=== PATIENT | male | born 1955 | race Caucasian/White ===

== ENCOUNTER → 2019-03-01 13:36 | Outpatient (CLI) | payer BC, SELFPAY ==
--- NOTE | 2019-03-01 13:43 | XR_ITS ---
PROCEDURE: XR FOOT WT BEARING LT 3V CLINICAL INDICATION: pain Left heel pain COMPARISON: No exams were available for comparison FINDINGS: No fracture or dislocation. No lytic or blastic change. There is normal mineralization. There are mild osteoarthritic changes of the talonavicular joint Other findings:The joint space is not identified at the anterior subtalar region suggesting talocalcaneal coalition. Consider CT or MRI for confirmation. 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 Consider CT or MRI for further evaluation Osteoarthritic change of the midfoot Dictated by: Jovany Álvarez MD 03/01/2019 16:19 Electronically signed by Jovany Álvarez MD in [place] 03/01/2019 16:19
== END ==
PROVIDERS: PCP Family Medicine; Visit Provider Podiatrist
DX: M79.672 Pain in left foot (principal); M79.671 Pain in right foot
CPT/HCPCS: 73630

== ENCOUNTER 2023-11-19 02:04 | Emergency (ER) | payer MEDICARE, SELFPAY ==
--- NOTE | 2023-11-19 | CA_ITS ---
FINAL REPORT CLINICAL HISTORY: rt leg pain x 4-5 days without injury. Previous DVT of arm 17 years ago FINDINGS: Color Doppler, duplex Doppler and compression sonography of the right lower extremity venous system was performed. Thrombus is noted in the right proximal peroneal vein and right posterior tibial vein. The other veins are patent and compressible. IMPRESSION: Deep venous thrombosis involving the right peroneal and posterior tibial veins. Authenticated and ERN
[2023-11-19 02:05] VITALS: BP 149/94; PULSE 82; RESP 20; TEMP 36.8; O2SAT 95; BMI 29.7
--- NOTE | 2023-11-19 02:20 | ED_ITS ---
Discharge Plan Disposition Patient Disposition: Home, Self-Care Prescriptions Prescriptions: No Action gabapentin 300 mg capsule 300 mg PO TID Qty: 270 Patient Comments: TAKE 1 CAPSULE BY MOUTH 3 TIMES A DAY pravastatin 10 mg tablet 10 mg PO DAILY Qty: 90 Patient Comments: TAKE 1 TABLET BY MOUTH EVERY DAY duloxetine 30 mg capsule,delayed release(DR/EC) PO Qty: 90 Patient Comments: TAKE ONE CAPSULE BY MOUTH EVERY DAY TO IMPROVE MOOD famotidine 20 mg tablet 20 mg PO BID Qty: 180 Patient Comments: TAKE 1 TABLET BY MOUTH TWICE A DAY metoprolol succinate 100 mg tablet extended release 24 hr PO Qty: 90 Patient Comments: TAKE 1 TABLET BY MOUTH EVERY MORNING folic acid 1 mg tablet 1 mg PO DAILY Qty: 90 Patient Comments: TAKE 1 TABLET BY MOUTH EVERY MORNING buspirone 10 mg tablet 10 mg PO TID Qty: 405 Patient Comments: TAKE 1 AND 1/2 TABLET BY MOUTH THREE TIMES A DAY fenofibrate 160 mg tablet 160 mg PO DAILY Qty: 90 Patient Comments: TAKE 1 TABLET BY MOUTH AT BEDTIME krill oil 500 mg capsule PO cyanocobalamin (vitamin B-12) 1,000 mcg capsule 1,000 mcg PO DAILY cholecalciferol (vitamin D3) 2,000 unit capsule 2,000 unit PO DAILY aspirin [Adult Low Dose Aspirin] 81 mg tablet,delayed release (DR/EC) 81 mg PO DAILY Referrals Follow up/Referrals: Nate Alas [Primary Care Provider] - See instructions Activity Restrictions/Add. Instructions Additional Instructions/Restrictions: Please follow-up for formal ultrasound of the right leg. Please follow-up with your primary care provider. Please return to the emergency department if you develop any new or worsening symptoms or become concerned for your health. Clinical Impressions Clinical Impression: Lower extremity pain, right Discharge ED Provider: Shaan Ortega General Adult HPI General Chief complaint: PAIN Stated complaint: possible blood clot, pain R leg Time Seen by Provider: 11/19/23 02:08 History of Present Illness HPI narrative: 68-year-old male with history of hypertension hyperlipidemia, prior unprovoked blood clot in the right arm approximately 15 years ago, presents with concern for blood clot in the right leg. He reports that he has been having pain in the posterior thigh, popliteal fossa and calf for the last few days. It has been worsening. Reports it is achy, dull. Denies any numbness or tingling or weakness. Denies any redness or swelling. Reports feels like when he had a blood clot in his arm. He denies any recent surgery immobilization travel etc. Denies any recent injury. Patient also reports that he does have intermittent pains of chest pain, none currently. Reports that he has been a little more short of breath than normal, this been going on for approximately 2 weeks. Reports that he is being worked up by his PCP for these issues. Denies any active chest pain or recent chest pain. Related Data Home Medications Medication Instructions Recorded Confirmed aspirin 81 mg tablet,delayed 81 mg PO DAILY 03/01/19 03/01/19 release (Adult Low Dose Aspirin) buspirone 10 mg tablet 10 mg PO TID #405 tabs 03/01/19 03/01/19 cholecalciferol (vitamin D3) 50 2,000 unit PO DAILY 03/01/19 03/01/19 mcg (2,000 unit) capsule cyanocobalamin (vitamin B-12) 1,000 mcg PO DAILY 03/01/19 03/01/19 1,000 mcg capsule duloxetine 30 mg capsule,delayed PO #90 caps 03/01/19 03/01/19 release famotidine 20 mg tablet 20 mg PO BID #180 tabs 03/01/19 03/01/19 fenofibrate 160 mg tablet 160 mg PO DAILY #90 tabs 03/01/19 03/01/19 folic acid 1 mg tablet 1 mg PO DAILY #90 tabs 03/01/19 03/01/19 gabapentin 300 mg capsule 300 mg PO TID #270 caps 03/01/19 03/01/19 krill oil 500 mg capsule mg PO 03/01/19 03/01/19 metoprolol succinate 100 mg PO #90 tabs 03/01/19 03/01/19 tablet,extended release 24 hr pravastatin 10 mg tablet 10 mg PO DAILY #90 tabs 03/01/19 03/01/19 Allergies Allergy/AdvReac Type Severity Reaction Status Date / Time ranitidine AdvReac Unknown Verified 03/01/19 14:11 [facility] Disclaimer: The information contained in this section may have been updated after the patient was seen, as this information can be updated by other users. Social History Smoking Status: Never smoker alcohol intake: former current occupational status: retired Travel in the last 8 weeks: None ROS Obtained: Yes All systems reviewed & no additional complaints except as documented Physical Exam General General appearance: alert and in no apparent distress Head Head exam: atraumatic and normocephalic Eye Eye exam: Present normal appearance, PERRL and EOMI ENT ENT exam: Present normal oropharynx and normal external ear exam Neck Neck exam: Present normal inspection and full ROM Chest Chest inspection: Present normal inspection and symmetric chest wall rise; Absent tenderness Respiratory Respiratory exam: Present normal lung sounds bilaterally; Absent respiratory distress Cardiovascular Cardiovascular exam: Present regular rate and normal rhythm Abdominal Exam Abdominal exam: Present soft; Absent distention, tenderness or guarding Extremities Exam Extremities exam: Present normal inspection and tenderness (Right posterior thigh, popliteal fossa, calf, mild. No unilateral swelling or erythema. Normal vascular exam); Absent edema or joint swelling Back Exam Back exam: Present normal inspection; Absent tenderness Neurological Exam Neurological exam: Present alert and oriented X3; Absent motor sensory deficit Psychiatric Psychiatric exam: Present normal affect and normal mood Skin Skin exam: Present warm, dry and normal color Lymphatic Lymphatic Findings: no adenopathy Medical Decision Making Medical Records Medical records reviewed: Yes I reviewed the patient's medical records. Massimo Inquiry Pt receiving controlled substance: No Massimo was queried for this patient: No Vital Signs: 11/19/23 02:05 11/19/23 02:31 11/19/23 03:00 Temperature 98.3 F Temperature Source Oral Pulse Rate 85 71 Pulse Rate [Right Radial] 82 Respiratory Rate 20 18 18 Blood Pressure 142/88 H 132/90 Blood Pressure [Right Arm] 149/94 H Blood Pressure Mean [Right Arm] 112 Blood Pressure Source [Right Arm] Automatic Cuff Blood Pressure Position [Right Arm] Sitting 02 Sat by Pulse Oximetry 95 97 94 L Oxygen Delivery Method Room Air Room Air Room Air 11/19/23 03:30 11/19/23 04:24 Temperature 97.9 F Temperature Source Oral Pulse Rate 70 79 Pulse Rate [Right Radial] Respiratory Rate 18 16 Blood Pressure 138/84 122/88 Blood Pressure [Right Arm] Blood Pressure Mean [Right Arm] Blood Pressure Source [Right Arm] Blood Pressure Position [Right Arm] 02 Sat by Pulse Oximetry 95 Oxygen Delivery Method Room Air Room Air Lab Data Lab results reviewed: Yes I reviewed the patient's lab results. Lab Results 11/19/23 02:25: WBC 8.9, RBC 4.58 L, Hgb 14.3, Hct 41.4 L, MCV 90.4, MCH 31.3 H, MCHC 34.6, RDW 13.6, Plt Count 179, MPV 7.4, Neut % (Auto) 52.0, Lymph % (Auto) 35.4, [place] % (Auto) 8.7, Eos % (Auto) 3.0, Baso % (Auto) 1.0, Neut # (Auto) 4.6, Lymph # (Auto) 3.1, [place] # (Auto) 0.8, Eos # (Auto) 0.3, Baso # (Auto) 0.1, D- Dimer 1.42 H, Sodium 140, Potassium 4.1, Chloride 108 H, Carbon Dioxide 25, Anion Gap 11.1, BUN 20, Creatinine 1.50 H, Estimated Creat Clear 61, Estimated GFR 47 L, Est GFR ( Amer) 56 L, Glucose 112 H, Calcium 10.4 H, Total Bilirubin 0.5, AST 38, ALT 38, Alkaline Phosphatase 65, Total Protein 7.5, Albumin 4.3, Globulin 3.2, Albumin/Globulin Ratio 1.3 11/19/23 02:25 11/19/23 02:25 Orders (Tests/Meds): ED MEDICATIONS Generic Name Dose Route Start Last Admin Trade Name Freq PRN Reason Stop Dose Admin Sodium Chloride 10 ml 11/19/23 03:30 11/19/23 03:31 Sodium Chloride 0.9% 10ml Syr (Rad Only) IV 12/19/23 03:29 10 ml NEEDED PRN Administration Maintain IV Site Discontinued Medications Generic Name Dose Route Start Last Admin Trade Name Freq PRN Reason Stop Dose Admin Iopamidol 70 ml 11/19/23 03:30 11/19/23 03:30 Iopamidol-370 (76%);100ml Bottle IV 11/19/23 03:31 70 ml ONCE ONE Administration Sodium Chloride 50 ml 11/19/23 03:30 11/19/23 03:30 0.9 % Sodium Chloride 50 Ml Vial IV 11/19/23 03:31 50 ml ONCE ONE Administration ORDERS Category Date Time Status CT angio chest PE protocol Stat Cat Scan 11/19/23 02:56 Completed POCUS Point of Care (ER Only) Stat Exams 11/19/23 02:21 Ordered CBC w/Auto Diff [Complete Blood Count Auto Diff] Stat Lab 11/19/23 02:25 Completed CMP [Comprehensive Metabolic Panel] Stat Lab 11/19/23 02:25 Completed D-Dimer Stat Lab 11/19/23 02:25 Completed Medical Decision Narrative: 68-year-old male with history of hypertension hyperlipidemia, previous unprovoked DVT in the arm presents for posterior right leg pain concerning for DVT. Also reports vague intermittent shortness of breath over the last couple of weeks.. History was obtained via interactive discussion with patient, chart review. On arrival, patient is [afebrile, hemodynamically stable, satting appropriately, alert, oriented x4, GCS 15], moving all extremities spontaneously. Full physical exam performed and significant for no unilateral swelling or erythema. Differential includes but is not limited to DVT, muscular strain, arterial insufficiency, radiculopathy. Bedside ultrasound performed by me and shows no evidence of acute DVT in the right lower extremity. Workup initiated including CBC CMP D-dimer. On re-evaluation, patient [remains afebrile, HD stable.] Laboratory workup independently interpreted by me and significant for mildly elevated D-dimer 1.43, will evaluate CT PE.. Imaging independently interpreted by me and significant for CT PE without evidence of acute PE, does show some chronic emphysematous changes. See radiology read for full review of final results. Initiation of anticoagulation was considered, but deemed unnecessary due to negative CT PE, negative bedside ultrasound. Given patient history, exam and workup, patient's presentation most likely represents right lower extremity pain of uncertain etiology. No evidence of acute arterial insufficiency, DVT, infectious etiology, fracture etc. These findings were communicated to patient. He was discharged in stable condition and given an order for formal duplex ultrasound of the right lower extremity to assess for DVT. Procedures Risk/Benefits of Procedure(s) Were Explained: Yes Limited Ultrasound Indication:: Limited DVT ultrasound Indication: Limited compression ultrasonography of the right upper extremity was performed to evaluate for non-compressibility of the deep veins in the patient. The ultrasound was performed with the following indications, as noted in the H&P: Right leg pain Identified structures: Right [common femoral vein, femoral vein, popliteal vein were examined.] Findings: Lower Extremity: Right CFV: Good compressibility Right FV good compressibility Right popliteal vein: Good compressibility Impression: Normal, no DVT noted in the visualized right lower extremity Images were saved to permanent archive The study was technically adequate CPT: 82829-19-UM This study was performed by me, and I personally interpreted all images/videos. Based on my clinical judgement, these images were adequate and did not necessitate further imaging. Critical Care Critical Care Time Critical Care Time: No
[2023-11-19 02:31] VITALS: BP 142/88; PULSE 85; RESP 18; O2SAT 97
[2023-11-19 02:46] LABS: Basophils # 0.1 K/mm3 (0-0.2); Chloride 108 mmol/L (98-107); Eosinophils # 0.3 K/mm3 (0.0-0.4); Hematocrit 41.4 % (42.0-52.0); Hemoglobin 14.3 g/dL (14.1-18.0); Lymphocytes # 3.1 K/mm3 (0.7-4.5); Lymphocytes % 35.4 % (10-50); Mean Corpuscular HGB Conc 34.6 g/dL (31.8-35.4); Mean Corpuscular Hemoglobin 31.3 pg (27.0-31.2); Mean Corpuscular Volume 90.4 fl (80-94); Mean Platelet Volume 7.4 fl (7.4-10.4); Monocytes # 0.8 K/mm3 (0.1-1.0); Monocytes % 8.7 % (1.7-9.3); Neutrophils # 4.6 K/mm3 (1.8-7.8); Platelet Count 179 K/mm3 (142-424); Potassium 4.1 mmoL/L (3.5-5.1); Red Blood Count 4.58 M/mm3 (4.60-6.20); Red Cell Distribution Width 13.6 % (11.5-17.5); Sodium 140 mmol/L (136-145); White Blood Count 8.9 K/mm3 (4.8-10.8)
[2023-11-19 02:48] LABS: Blood Urea Nitrogen 20 mg/dl (9-20); Creatinine Clearance Estimated 61 mL/min (50-200); Estimated Glomerular Filt Rate 47 ml/min (>60); GFR (African American) 56 ML/MIN (>60)
[2023-11-19 02:49] LABS: Alanine Aminotransferase 38 U/L (12-78); Albumin Level 4.3 g/dl (3.5-5.0); Albumin/Globulin Ratio 1.3 (1.1-1.8); Alkaline Phosphatase 65 U/L (38-126); Anion Gap 11.1 mEq/L (5-15); Aspartate Amino Transferase 38 U/L (17-59); Bilirubin,Total 0.5 mg/dl (0.2-1.3); Carbon Dioxide 25 mmol/L (22.0-30.0); Globulin 3.2 g/dL (1.3-3.2); Total Protein,Serum 7.5 g/dl (6.3-8.2)
[2023-11-19 02:50] LABS: Calcium 10.4 mg/dl (8.4-10.2); Glucose 112 mg/dl (74-100)
[2023-11-19 02:53] LABS: D-Dimer 1.42 ug/mL (0.0-0.5)
--- NOTE | 2023-11-19 02:56 | CT_ITS ---
PROCEDURE INFORMATION: Exam: CTA Chest With Contrast Exam date and time: 11/19/2023 3:25 AM Age: 68 years old Clinical indication: Shortness of breath; Additional info: Leg pain, SOA, positive dimer TECHNIQUE: Imaging protocol: Computed tomographic angiography of the chest with contrast. Exam focused on the arteries. 3D rendering (Not supervised by radiologist): MIP and/or 3D reconstructed images were created by the technologist. Radiation optimization: All CT scans at this facility use at least one of these dose optimization techniques: automated exposure control; mA and/or kV adjustment per patient size (includes targeted exams where dose is matched to clinical indication); or iterative reconstruction. Contrast material: ISOVUE; Contrast volume: 70 ml; Contrast route: INTRAVENOUS (IV); COMPARISON: No relevant prior studies available. FINDINGS: Pulmonary arteries: Normal. No pulmonary emboli. Aorta: Unremarkable. No aortic aneurysm. No aortic dissection. Lungs: Some mild upper lobe predominant centrilobular emphysema. Pleural spaces: Unremarkable. No pneumothorax. No pleural effusion. Heart: Unremarkable. No cardiomegaly. No pericardial effusion. Coronary arteries: Coronary atherosclerosis. Lymph nodes: Multiple small calcified hilar lymph nodes are seen consistent with prior granulomatous disease. Diaphragm: Elevation of the right hemidiaphragm. Bones/joints: Unremarkable. No acute fracture. Soft tissues: Unremarkable. IMPRESSION: 1. No evidence of pulmonary embolus or other acute process. 2. Multiple small calcified hilar lymph nodes are seen consistent with prior granulomatous disease. 3. Coronary atherosclerosis. 4. Elevation of the right hemidiaphragm. 5. Mild upper lobe predominant centrilobular emphysema.
[2023-11-19 03:00] VITALS: BP 132/90; PULSE 71; RESP 18; O2SAT 94
[2023-11-19 03:30] VITALS: BP 138/84; PULSE 70; RESP 18; O2SAT 95
[2023-11-19] MEDS: IOPAMIDOL-370 (76%);100ML BOTTLE 70 ML IV (03:30)
[2023-11-19] MEDS: 0.9 % SODIUM CHLORIDE 50 ML VIAL IV (03:30)
[2023-11-19] MEDS: SODIUM CHLORIDE 0.9% 10ML SYR (RAD ONLY) 10 ML IV (03:31)
[2023-11-19 04:24] VITALS: BP 122/88; PULSE 79; RESP 16; TEMP 36.6; O2SAT 95
== END 2023-11-19 04:31 | disposition home or self-care (01) ==
PROVIDERS: Emergency Provider Emergency Medicine; PCP Family Medicine
DX: I82.451 Acute embolism and thrombosis of right peroneal vein (principal); I82.441 Acute embolism and thrombosis of right tibial vein; M79.604 Pain in right leg; I10 Essential (primary) hypertension; E78.5 Hyperlipidemia, unspecified
CPT/HCPCS: 71275; 80053; 85025; 85378; 93971; 99285; Q9967

== ENCOUNTER 2023-11-19 10:48 | Emergency (ER) | payer MEDICARE, SELFPAY ==
[2023-11-19 10:50] VITALS: BP 131/78; PULSE 86; RESP 16; TEMP 36.9; O2SAT 96; BMI 28.7
--- NOTE | 2023-11-19 11:29 | HMH.EDGENADL ---
Discharge Plan Disposition Patient Disposition: Home, Self-Care Condition: Good Prescriptions Prescriptions: New Xarelto DVT-PE Treat 30d Start 15 mg (42)- 20 mg (9) tablets,dose pack See Rx Instructions .ROUTE .COMPLEX Qty: 51 0RF Rx Instructions: take one-15 mg tablet twice daily for 21 days, then one-20 mg tablet once daily; must take with meal/food No Action gabapentin 300 mg capsule 300 mg PO TID Qty: 270 Patient Comments: TAKE 1 CAPSULE BY MOUTH 3 TIMES A DAY pravastatin 10 mg tablet 10 mg PO DAILY Qty: 90 Patient Comments: TAKE 1 TABLET BY MOUTH EVERY DAY duloxetine 30 mg capsule,delayed release(DR/EC) PO Qty: 90 Patient Comments: TAKE ONE CAPSULE BY MOUTH EVERY DAY TO IMPROVE MOOD famotidine 20 mg tablet 20 mg PO BID Qty: 180 Patient Comments: TAKE 1 TABLET BY MOUTH TWICE A DAY metoprolol succinate 100 mg tablet extended release 24 hr PO Qty: 90 Patient Comments: TAKE 1 TABLET BY MOUTH EVERY MORNING folic acid 1 mg tablet 1 mg PO DAILY Qty: 90 Patient Comments: TAKE 1 TABLET BY MOUTH EVERY MORNING buspirone 10 mg tablet 10 mg PO TID Qty: 405 Patient Comments: TAKE 1 AND 1/2 TABLET BY MOUTH THREE TIMES A DAY fenofibrate 160 mg tablet 160 mg PO DAILY Qty: 90 Patient Comments: TAKE 1 TABLET BY MOUTH AT BEDTIME krill oil 500 mg capsule PO cyanocobalamin (vitamin B-12) 1,000 mcg capsule 1,000 mcg PO DAILY cholecalciferol (vitamin D3) 2,000 unit capsule 2,000 unit PO DAILY aspirin [Adult Low Dose Aspirin] 81 mg tablet,delayed release (DR/EC) 81 mg PO DAILY Referrals Follow up/Referrals: Nate Alas [Primary Care Provider] - See instructions Activity Restrictions/Add. Instructions Additional Instructions/Restrictions: As we discussed, the ultrasound shows a blood clot in your right leg, I have prescribed a by mouth medication called Xarelto which is a newer blood thinning medication that is similar in mechanism to warfarin but does not need frequent lab checks. You will need to follow-up with your primary care doctor to get this investigated further as to the cause of your blood clot. Please return to the emergency department with any new or worsening symptoms. Clinical Impressions Clinical Impression: Acute deep vein thrombosis (DVT) of right lower extremity Qualifiers: Affected thrombotic vein of extremity: peroneal Qualified Code(s): I82.451 - Acute embolism and thrombosis of right peroneal vein Discharge ED Provider: Harsha Agee Adult HPI General Chief complaint: Extremity Problem,Nontraumatic Stated complaint: follow up Time Seen by Provider: 11/19/23 11:29 History of Present Illness HPI narrative: Patient presents after being evaluated yesterday evening for right lower extremity swelling, occasional shortness of breath. He was sent for follow-up right lower extremity ultrasound after negative CT PE, however positive D-dimer. The patient reports right leg pain that has been bothering them for four to five days. They have a history of a blood clot in 2006, which was treated with warfarin. The patient denies any recent travel, procedures, hospitalizations, or prolonged immobilization. No recent surgeries. Please note that above description of symptoms, in this electronic medical record under categorization of recalled from ER triage doctor by RN are reflective of an initial nursing assessment, however, is not reflective of my full history and physical exam that was personally taken and clarified. Consequentially, this preceding description of symptoms, which may include the patient's categorized chief complaint in the EMR, do not reflect my personal clinical impression, and the ultimate description of history of present illness and patient stated complaints should be deferred to this section of the note. Unless stated otherwise or congruent with this section of the note, additional signs, symptoms, or incongruence should be interpreted as inaccurate with my clinical impression. Related Data Home Medications Medication Instructions Recorded Confirmed aspirin 81 mg tablet,delayed 81 mg PO DAILY 03/01/19 03/01/19 release (Adult Low Dose Aspirin) buspirone 10 mg tablet 10 mg PO TID #405 tabs 03/01/19 03/01/19 cholecalciferol (vitamin D3) 50 2,000 unit PO DAILY 03/01/19 03/01/19 mcg (2,000 unit) capsule cyanocobalamin (vitamin B-12) 1,000 mcg PO DAILY 03/01/19 03/01/19 1,000 mcg capsule duloxetine 30 mg capsule,delayed PO #90 caps 03/01/19 03/01/19 release famotidine 20 mg tablet 20 mg PO BID #180 tabs 03/01/19 03/01/19 fenofibrate 160 mg tablet 160 mg PO DAILY #90 tabs 03/01/19 03/01/19 folic acid 1 mg tablet 1 mg PO DAILY #90 tabs 03/01/19 03/01/19 gabapentin 300 mg capsule 300 mg PO TID #270 caps 03/01/19 03/01/19 krill oil 500 mg capsule mg PO 03/01/19 03/01/19 metoprolol succinate 100 mg PO #90 tabs 03/01/19 03/01/19 tablet,extended release 24 hr pravastatin 10 mg tablet 10 mg PO DAILY #90 tabs 03/01/19 03/01/19 Previous Rx's Medication Instructions Recorded rivaroxaban 15 mg (42)-20 mg (9) See Rx Instructions PO .COMPLEX 11/19/23 tablets in a starter pack (Xarelto #51 tabs DVT-PE Treatment 30-Day Starter) Allergies Allergy/AdvReac Type Severity Reaction Status Date / Time ranitidine AdvReac Unknown Verified 03/01/19 14:11 [facility] Disclaimer: The information contained in this section may have been updated after the patient was seen, as this information can be updated by other users. Social History Smoking Status: Never smoker alcohol intake: former current occupational status: retired Travel in the last 8 weeks: None ROS Obtained: Yes other As per HPI Physical Exam General General appearance: alert and in no apparent distress Head Head exam: atraumatic and normocephalic Eye Eye exam: Present normal appearance Neck Neck exam: Present normal inspection Chest Chest inspection: Present normal inspection and symmetric chest wall rise Respiratory Respiratory exam: Present normal lung sounds bilaterally; Absent respiratory distress Cardiovascular Cardiovascular exam: Present regular rate and normal rhythm Abdominal Exam Abdominal exam: Present soft Neurological Exam Neurological exam: Present alert and oriented X3 Psychiatric Psychiatric exam: Present normal affect and normal mood Skin Skin exam: Present warm and dry Other Other exam information: Right lower extremity unilateral edema, tenderness to palpation Medical Decision Making Medical Records Medical records reviewed: Yes I reviewed the patient's medical records. Massimo Inquiry Pt receiving controlled substance: No Vital Signs: 11/19/23 10:50 11/19/23 11:53 Temperature 98.5 F 98.2 F Temperature Source Oral Oral Pulse Rate 84 Pulse Rate [Right] 86 Respiratory Rate 16 18 Blood Pressure 141/73 H Blood Pressure [Right Arm] 131/78 Blood Pressure Mean [Right Arm] 95 02 Sat by Pulse Oximetry 96 Oxygen Delivery Method Room Air Room Air Medical Decision Narrative: Patient with history and exam per above presenting for evaluation of right lower extremity swelling, pain Diagnoses considered include DVT, cellulitis, venous stasis dermatitis, given negative CT pulmonary embolism yesterday, low clinical index of suspicion for this etiology at this time. ED workup and treatment included: Right lower extremity duplex ultrasound Imaging was independently visualized and interpreted by me, significant for thrombosis and popliteal vein Please refer to radiology report for full details. My clinical impression at this time is most consistent with deep vein thrombosis, for which patient will be initiated on anticoagulation and follow-up with primary care provider. I discussed my clinical impression with patient and answered all questions. At this time, the evidence for any other entities in the differential is insufficient to warrant any further testing or ED observation. This was explained to the patient. The patient was advised that persistent or worsening symptoms require further evaluation. I confirmed the patient's understanding of this discussion. Critical Care Critical Care Time Critical Care Time: No
[2023-11-19 11:53] VITALS: BP 141/73; PULSE 84; RESP 18; TEMP 36.8; O2SAT 96
== END 2023-11-19 12:01 | disposition home or self-care (01) ==
PROVIDERS: Emergency Provider Emergency Medicine; PCP Family Medicine
DX: I82.441 Acute embolism and thrombosis of right tibial vein (principal); I82.451 Acute embolism and thrombosis of right peroneal vein
CPT/HCPCS: 99283